=== PATIENT | male | born 1985 | race Caucasian/White ===

== ENCOUNTER 2021-11-10 14:14 | Inpatient (IN) | payer OTHER ==
[2021-11-10] MEDS ORDERED: VENTOLIN COMMON CANISTER IH STA (14:34)
[2021-11-10] MEDS ORDERED: DECADRON 10MG INJ. IV ONE (14:34)
[2021-11-10] MEDS ORDERED: Zithromax 500 MG/ 250 ML NaCl Premix 500 MG/250 ML IVPB IV STA (14:34)
[2021-11-10] MEDS ORDERED: ROCEPHIN 2 Gm-D5w 50ML BAG** 2 G/50 ML IVPB IV STA (14:34)
[2021-11-10] MEDS ORDERED: DECADRON 10MG INJ. ONE (14:40)
[2021-11-10] MEDS ORDERED: ROCEPHIN 2 Gm-D5w 50ML BAG** 2 G/50 ML IVPB IV ONE (14:40)
[2021-11-10 14:45] LABS: Absolute Neutrophil Ct (ANC) 5.93 (1.4-6.9); BASOPHIL % 0.1 % (0.0-0.4); Basophil (Absolute #) 0.01 (0-0.4); Eosinophil % 0.1 % (0.00-5.0); Eosinophil (Absolute #) 0.01 (0-0.5); Hemoglobin 15.6 gm/dl (12.5-18.0); Lymphocyte (Absolute #) 1.06 (1.0-4.6); Lymphocytes % 13.9 % (24.0-44.0); Mean Cell Volume 89.8 fl (78-100); Mean Corpuscular Hemoglobin 30.5 pg (26-32); Mean Corpuscular Hgb Concent. 33.9 g/dl (32-36); Mean Platelet Volume 9.9 fl (7.5-11.0); Monocytes % 7.9 % (0.0-12.0); Platelet Count 208 K/mm3 (150-450); Red Blood Count 5.12 M/mm3 (4.1-5.6); Red Cell Distribution Width 13.3 % (11.5-14.0); White Blood Count 7.6 K/mm3 (4.0-10.5)
--- NOTE | 2021-11-10 14:49 | ERPHSYRPT ---
- History of Present Illness Time Seen by Provider: 11/10/21 14:18 Source: patient Exam Limitations: no limitations Patient Subjective Stated Complaint: Pt is positive for covid and he is SOB and has body fatigue and was told by his work to come here Triage Nursing Assessment: Pt brought to the ER by a family member, tachypnic, rates overall body pain as 5/10, oxygen was 87% upon arrival and was placed on 3L NC, skin n/w/d, some diarrhea Physician History: 36 years old healthy male presented to the ER with chief complaint of increasing shortness of breath for the last 10 days. Patient has been tested positive for COVID-19 outpatient. Reports having generalized weakness fatigue and tiredness no few days ago but having increasing shortness of breath but activity and now having some shortness of breath even resting and gets very worse on ambulation. Reports having minimal nonproductive cough and chest tightness with subjective feeling of fever and chills. Patient oxygen saturation was 88% on room air on p resentation, placed on 3 L and currently around 95%. Unvaccinated against COVID-19. Timing/Duration: day(s) (10), gradual onset, worse Activities at Onset: activity, rest Severity of Dyspnea-Max: moderate Severity of Dyspnea-Current: moderate Possible Cause: illness exposure Modifying Factors: Worsens With: activity, coughing, exertion Associated Symptoms: cough, chest pain/discomfort, weakness, painful breathing, No productive cough Allergies/Adverse Reactions: No Known Drug Allergies Allergy (Verified 11/10/21 14:26) Home Medications: Lisinopril 10 mg [Zestril 10 MG] 10 mg PO DAILY 11/10/21 [History] Travel Risk - International Travel Have you traveled outside of the country in past 3 weeks: No - Coronavirus Screening Symptoms: Cough: New Onset, Shortness of Breath, Vomiting/Diarrhea, Loss of Taste or Smell, Headaches/Body Aches/Fatigue - Vaccine Status Have you recieved a Covid-19 vaccination: No - Review of Systems Constitutional: Fever, Chills, Fatigue, Weakness Eyes: No Symptoms Ears, Nose, & Throat: Nose Congestion Respiratory: Cough, Dyspnea, Dyspnea on Exertion (ODOM), Wheezing Cardiac: Chest Pain Abdominal/Gastrointestinal: No Symptoms Genitourinary Symptoms: No Symptoms Musculoskeletal: Myalgias Skin: No Symptoms Neurological: Headache Psychological: No Symptoms Endocrine: No Symptoms Hematologic/Lymphatic: No Symptoms Immunological/Allergic: No Symptoms - Past Medical History Pertinent Past Medical History: Yes Cardiac History: Hypertension - Past Surgical History Past Surgical History: No - Social History Smoking Status: Never smoker Exposure to second hand smoke: No Drug Use: none Patient Lives Alone: No - Nursing Vital Signs Nursing Vital Signs: Initial Vital Signs Temperature 98.3 F 11/10/21 14:15 Pulse Rate 90 11/10/21 14:15 Respiratory Rate 34 H 11/10/21 14:15 Blood Pressure 113/78 11/10/21 14:15 O2 Sat by Pulse Oximetry 95 11/10/21 14:15 Pain Scale Pain Intensity 5 - Physical Exam General Appearance: mild distress, alert Eye Exam: PERRL/EOMI, eyes nml inspection Ears, Nose, Throat Exam: hearing grossly normal, pharyngeal erythema Neck Exam: normal inspection, supple, full range of motion Respiratory Exam: diminished breath sounds, accessory muscle use, rhonchi, wheezing Cardiovascular/Chest Exam: normal heart sounds, regular rate/rhythm Abdominal/Gastrointestinal Exam: soft, No tenderness Extremity Exam: non-tender, normal range of motion Neurologic Exam: alert, oriented x 3, cooperative, hand salter II-XII nml as tested Skin Exam: normal color SpO2 Interpretation: O2 applied SpO2: 95 O2 Delivery: Nasal Cannula (3L) - Course EKG Interpreted by Me: RATE, Sinus Rhythm, NORMAL AXIS, NORMAL INTERVALS, NORMAL QRS Ordered Tests: Active Orders 24 hr Category Date Time Status Learning Engineer STAT Care 11/10/21 14:33 Active EKG-ER Only STAT Care 11/10/21 14:32 Active IV Insertion STAT Care 11/10/21 14:32 Active Oxygen-ED Only Nasal Cannula 3 lpm Care 11/10/21 14:32 Active CHEST 1 VIEW (PORTABLE) Stat Exams 11/10/21 14:33 Completed CHEST WITH CONTRAST [CT] Stat Exams 11/10/21 15:08 Completed BLOOD CULTURE Stat Lab 11/10/21 15:00 Received CBC W DIFF Stat Lab 11/10/21 14:44 Completed CMP Stat Lab 11/10/21 14:44 Completed D-DIMER QUANTITATIVE Stat Lab 11/10/21 14:44 Completed Lactic Acid Stat Lab 11/10/21 14:44 Completed MAGNESIUM Stat Lab 11/10/21 14:44 Completed NT PRO BNP Stat Lab 11/10/21 14:44 Completed TROPONIN Q3H Lab 11/10/21 14:44 Completed TROPONIN Q3H Lab 11/10/21 17:45 Ordered TROPONIN Q3H Lab 11/10/21 20:45 Ordered TROPONIN Q3H Lab 11/10/21 23:45 Ordered TROPONIN Q3H Lab 11/11/21 02:45 Ordered Respiratory Therapy Assessment ONCE RT 11/10/21 15:16 Active Transfer Order Routine Transfer 11/10/21 Ordered Medication Summary Generic Name Dose Route Start Last Admin Trade Name Freq PRN Reason Stop Dose Admin Sodium Chloride 1,000 mls @ 999 mls/hr 11/10/21 15:36 Sodium Chloride 0.9% 1000 Ml IV 11/10/21 16:36 .Q1H1M STA Remdesivir 200 mg/ Sodium 250 mls @ 125 mls/hr 11/10/21 15:38 Chloride IV 11/10/21 17:37 ONCE ONE Discontinued Medications Generic Name Dose Route Start Last Admin Trade Name Freq PRN Reason Stop Dose Admin Albuterol Sulfate 4 puff 11/10/21 14:34 11/10/21 15:05 Albuterol Common Canister Inhaler IH 11/10/21 14:35 4 puff ONCE STA Administration Dexamethasone Sodium Phosphate 6 mg 11/10/21 14:34 11/10/21 14:45 Dexamethasone Sod Phosphate 10 Mg/Ml IV 11/10/21 14:35 6 mg STAT ONE Administration Dexamethasone Sodium Phosphate Confirm 11/10/21 14:40 Dexamethasone Sod Phosphate 10 Mg/Ml Administered 11/10/21 14:41 Dose 10 mg .ROUTE .STK-MED ONE Azithromycin 500 mg in 250 mls @ 250 mls/hr 11/10/21 14:34 11/10/21 16:06 Zithromax 500 Mg/ 250 Ml Nacl Premix IV 11/10/21 15:33 250 ml/hr STAT STA 250 mls/hr Administration Ceftriaxone Sodium/Dextrose 2 g in 50 mls @ 100 mls/hr 11/10/21 14:34 11/10/21 15:17 Rocephin 2 Gm-D5w 50ml Bag IV 11/10/21 15:03 Infused STAT STA Infusion Ceftriaxone Sodium/Dextrose Confirm 11/10/21 14:40 Rocephin 2 Gm-D5w 50ml Bag Administered 11/10/21 14:41 Dose 2 g in 50 mls @ ud IV .STK-MED ONE Azithromycin Confirm 11/10/21 15:35 Zithromax 500 Mg/ 250 Ml Nacl Premix Administered 11/10/21 15:36 Dose 500 mg in 250 mls @ ud IV .STK-MED ONE Lab/Rad Data: Laboratory Result Diagrams 11/10/21 14:44 11/10/21 14:44 Laboratory Results 11/10/21 11/10/21 11/10/21 Range/Units 14:44 14:44 14:44 WBC (4.0-10.5) K/mm3 RBC (4.1-5.6) M/mm3 Hgb (12.5-18.0) gm/dl Hct (42-50) % MCV (78-100) fl MCH (26-32) pg MCHC (32-36) g/dl RDW (11.5-14.0) % Plt Count (150-450) K/mm3 MPV (7.5-11.0) fl Gran % (36.0-66.0) % Eos # (Auto) (0-0.5) Absolute Lymphs (auto) (1.0-4.6) Absolute Monos (auto) (0.0-1.3) Lymphocytes % (24.0-44.0) % Monocytes % (0.0-12.0) % Eosinophils % (0.00-5.0) % Basophils % (0.0-0.4) % Absolute Granulocytes (1.4-6.9) Basophils # (0-0.4) D-Dimer 1202 H* (215-500) ng/mL Sodium 140 (137-145) mmol/L Potassium 3.8 (3.5-5.1) mmol/L Chloride 107 (98-107) mmol/L Carbon Dioxide 17 L (22-30) mmol/L Anion Gap 19.3 H (5-15) MEQ/L BUN 27 H (9-20) mg/dL Creatinine 1.40 H (0.66-1.25) mg/dL Estimated GFR > 60.0 ML/MIN Glucose 127 H (74-106) mg/dL Lactic Acid (0.4-2.0) Calcium 9.3 (8.4-10.2) mg/dL Magnesium 2.1 (1.6-2.3) mg/dL Total Bilirubin 0.90 (0.2-1.3) mg/dL AST 97 H (17-59) U/L ALT 70 H (0-50) U/L Alkaline Phosphatase 87 (38-126) U/L Troponin I < 0.012 (0.000-0.034) ng/mL NT-Pro-B Natriuret Pep 25.9 (0-450) pg/mL Serum Total Protein 7.3 (6.3-8.2) g/dL Albumin 4.4 (3.5-5.0) g/dL 11/10/21 11/10/21 Range/Units 14:44 14:44 WBC 7.6 (4.0-10.5) K/mm3 RBC 5.12 (4.1-5.6) M/mm3 Hgb 15.6 (12.5-18.0) gm/dl Hct 46.0 (42-50) % MCV 89.8 (78-100) fl MCH 30.5 (26-32) pg MCHC 33.9 (32-36) g/dl RDW 13.3 (11.5-14.0) % Plt Count 208 (150-450) K/mm3 MPV 9.9 (7.5-11.0) fl Gran % 78.0 H (36.0-66.0) % Eos # (Auto) 0.01 (0-0.5) Absolute Lymphs (auto) 1.06 (1.0-4.6) Absolute Monos (auto) 0.60 (0.0-1.3) Lymphocytes % 13.9 L (24.0-44.0) % Monocytes % 7.9 (0.0-12.0) % Eosinophils % 0.1 (0.00-5.0) % Basophils % 0.1 (0.0-0.4) % Absolute Granulocytes 5.93 (1.4-6.9) Basophils # 0.01 (0-0.4) D-Dimer (215-500) ng/mL Sodium (137-145) mmol/L Potassium (3.5-5.1) mmol/L Chloride (98-107) mmol/L Carbon Dioxide (22-30) mmol/L Anion Gap (5-15) MEQ/L BUN (9-20) mg/dL Creatinine (0.66-1.25) mg/dL Estimated GFR ML/MIN Glucose (74-106) mg/dL Lactic Acid 1.4 (0.4-2.0) Calcium (8.4-10.2) mg/dL Magnesium (1.6-2.3) mg/dL Total Bilirubin (0.2-1.3) mg/dL AST (17-59) U/L ALT (0-50) U/L Alkaline Phosphatase (38-126) U/L Troponin I (0.000-0.034) ng/mL NT-Pro-B Natriuret Pep (0-450) pg/mL Serum Total Protein (6.3-8.2) g/dL Albumin (3.5-5.0) g/dL - Progress Progress: improved, re-examined Air Movement: fair Progress Note: 11/10/21 15:39 36 years old positive COVID-19 with worsening shortness of breath, hypoxic on room air on presentation currently on 3 L with sats around 95%. Chest x-ray bilateral airspace disease, given Decadron, albuterol puffs along with a dose of antibiotics and remdesivir. Also has HUMPHREY of the creatinine of 1.4 with baseline 0.7 which I believe is secondary to decreased oral intake, given fluids. Elevated D-dimer, will obtain CTA. Discussed with Dr. Figueroa and patient is accepted for admission. Blood Culture(s) Obtained: Yes Antibiotics given: Yes Discussed with Dr.: Other Will see patient in: hospital (full admit) Counseled pt/family regarding: lab results (Dr. Figueroa), diagnosis, rad results - Departure Departure Disposition: In-patient Admission Clinical Impression: Pneumonia due to COVID-19 virus, HUMPHREY (acute kidney injury) Respiratory failure Qualifiers: Chronicity: acute Respiratory failure complication: hypoxia Qualified Code(s): J96.01 - Acute respiratory failure with hypoxia Condition: Stable Critical Care Time: No
--- NOTE | 2021-11-10 14:57 | XRAY ---
Indication: Short of breath. Positive Covid 19. Comparison: March 07, 2018. Portable chest less inflated with new diffuse bilateral patchy groundglass airspace disease without consolidation/large effusion. Remaining heart and bony thorax unremarkable.
[2021-11-10 15:22] LABS: ALBUMIN 4.4 g/dL (3.5-5.0); ALKALINE PHOSPHATASE 87 U/L (38-126); ANION GAP 19.3 MEQ/L (5-15); BLOOD UREA NITROGEN 27 mg/dL (9-20); CHLORIDE 107 mmol/L (98-107); Calcium 9.3 mg/dL (8.4-10.2); Carbon Dioxide 17 mmol/L (22-30); EST GLOMERULAR FILTRATION RATE > 60.0 ML/MIN; Glucose 127 mg/dL (74-106); MAGNESIUM 2.1 mg/dL (1.6-2.3); NT PRO BNP 25.9 pg/mL (0-450); Potassium 3.8 mmol/L (3.5-5.1); SGOT/AST 97 U/L (17-59); SGPT/ALT 70 U/L (0-50); SODIUM 140 mmol/L (137-145); Total Protein 7.3 g/dL (6.3-8.2)
[2021-11-10] MEDS ORDERED: Zithromax 500 MG/ 250 ML NaCl Premix 500 MG/250 ML IVPB IV ONE (15:35)
[2021-11-10] MEDS ORDERED: Sodium Chloride 0.9% 1000 ML 1,000 ML IV STA (15:36)
[2021-11-10] MEDS ORDERED: REMDESIVIR 200 MG in Sodium Chloride 0.9% 250 ML 250 ML IV ONE (15:38)
--- NOTE | 2021-11-10 16:24 | XRAY ---
Indication: Positive Covid 19. Elevated d-dimer. Multiple contiguous images obtained through the chest using 100 cc Isovue 370 contrast and PE protocol. Comparison: None There is good opacification of the pulmonary arteries to include the lobar and segmental branches. No pulmonary embolus. Heart not enlarged. Aorta is normal in course and caliber. No pathologic mediastinal/hilar lymphadenopathy. Lungs demonstrates moderate diffuse bilateral patchy consolidating/nonconsolidating airspace disease. No effusion. Incidental tiny right middle lobe calcified granuloma. Bony thorax intact. The limited upper abdomen demonstrates mild diffuse fatty liver and 13.5 cm splenomegaly. Impression: 1. Negative pulmonary embolus. 2. Diffuse bilateral patchy consolidating/nonconsolidating airspace disease favoring Covid 19 pneumonia. 3. Incidental fatty liver and splenomegaly.
[2021-11-10] MEDS ORDERED: Sodium Chloride 0.9% 1000 ML 1,000 ML ONE (17:38)
[2021-11-10] MEDS ORDERED: Zofran 4 MG/2 ML VIAL IV PRN (21:18)
[2021-11-10] MEDS ORDERED: MORPHINE SULFATE 2 MG INJ IV PRN (21:18)
[2021-11-10] MEDS ORDERED: TYLENOL 325 MG PO PRN (21:18)
[2021-11-10] MEDS: OLUMIANT PO SCH (22:42)
[2021-11-10] MEDS: Sodium Chloride 0.9% 1000 ML 1,000 ML IV SCH (22:50)
[2021-11-10] MEDS: Ativan 1 MG PO PRN (23:00)
[2021-11-10] MEDS: HYDROCODONE-CHLORPHEN ER SUSP PO PRN (23:00)
[2021-11-11 05:45] LABS: Hematocrit 40.6 % (42-50); Hemoglobin 13.3 gm/dl (12.5-18.0); Mean Cell Volume 92.7 fl (78-100); Mean Corpuscular Hemoglobin 30.4 pg (26-32); Mean Corpuscular Hgb Concent. 32.8 g/dl (32-36); Mean Platelet Volume 9.8 fl (7.5-11.0); Platelet Count 202 K/mm3 (150-450); Red Blood Count 4.38 M/mm3 (4.1-5.6); Red Cell Distribution Width 13.3 % (11.5-14.0); White Blood Count 3.8 K/mm3 (4.0-10.5)
[2021-11-11 05:59] LABS: ALBUMIN 3.8 g/dL (3.5-5.0); ALKALINE PHOSPHATASE 62 U/L (38-126); ANION GAP 15.4 MEQ/L (5-15); BLOOD UREA NITROGEN 21 mg/dL (9-20); CHLORIDE 110 mmol/L (98-107); Calcium 8.4 mg/dL (8.4-10.2); Carbon Dioxide 19 mmol/L (22-30); EST GLOMERULAR FILTRATION RATE > 60.0 ML/MIN; Glucose 140 mg/dL (74-106); Potassium 4.5 mmol/L (3.5-5.1); SGOT/AST 70 U/L (17-59); SGPT/ALT 60 U/L (0-50); SODIUM 140 mmol/L (137-145); Total Protein 6.7 g/dL (6.3-8.2)
[2021-11-11 07:48] LABS: BAND 3 % (0.0-2.0); Lymphocytes 29 % (24-44); Monocyte 5 % (0.0-12.0); Neutrophils 63 % (36.-66.); Platelet Estimate NORMAL (NORMAL); Total Cells Counted 100; Toxic Granulation 1+
[2021-11-11] MEDS ORDERED: TYLENOL EXTRA STRENGTH 500 MG PO PRN (08:41)
[2021-11-11] MEDS: Sodium Chloride 0.9% 1000 ML 1,000 ML IV SCH (09:12)
[2021-11-11] MEDS ORDERED: ZYLOPRIM 300 MG PO SCH (10:00)
[2021-11-11] MEDS ORDERED: ROCEPHIN 1 Gm-D5w 50 ml Bag** 1 G/50 ML IVPB IV SCH (10:00)
[2021-11-11] MEDS ORDERED: Zithromax 500 MG/ 250 ML NaCl Premix 500 MG/250 ML IVPB IV SCH (10:00)
[2021-11-11] MEDS: ZYLOPRIM 300 MG PO SCH ×2 (11:07→21:20)
[2021-11-11] MEDS: Zestril 20 MG PO SCH (11:07)
[2021-11-11] MEDS: DECADRON 10MG INJ. IV SCH (11:07)
[2021-11-11] MEDS: ENOXAPARIN SODIUM SQ SCH (11:07)
[2021-11-11] MEDS: PROTONIX 40 MG IV IV SCH (11:08)
[2021-11-11] MEDS: OLUMIANT PO SCH (11:08)
[2021-11-11] MEDS: ZOCOR 20MG PO SCH (11:31)
[2021-11-11] MEDS: REMDESIVIR 100 MG in Sodium Chloride 0.9% 100 ML BAG 100 ML IV SCH (21:20)
[2021-11-11] MEDS: Ativan 1 MG PO PRN (22:43)
[2021-11-12] MEDS ORDERED: Ativan 2 MG/1 ML VIAL IV ONE (02:03)
[2021-11-12] MEDS: Sodium Chloride 0.9% 1000 ML 1,000 ML IV SCH (06:27)
[2021-11-12] MEDS: HYDROCODONE-CHLORPHEN ER SUSP PO PRN ×2 (07:44→20:56)
[2021-11-12] MEDS: PROTONIX 40 MG IV IV SCH (09:12)
[2021-11-12] MEDS: OLUMIANT PO SCH (09:12)
[2021-11-12] MEDS: ENOXAPARIN SODIUM SQ SCH (09:12)
[2021-11-12] MEDS: Zestril 20 MG PO SCH (09:12)
[2021-11-12] MEDS: DECADRON 10MG INJ. IV SCH (09:12)
[2021-11-12] MEDS: ZOCOR 20MG PO SCH (09:13)
[2021-11-12] MEDS: ZYLOPRIM 300 MG PO SCH ×2 (09:17→20:56)
[2021-11-12] MEDS: Ativan 1 MG PO PRN (20:56)
[2021-11-12] MEDS: REMDESIVIR 100 MG in Sodium Chloride 0.9% 100 ML BAG 100 ML IV SCH (20:56)
[2021-11-13 08:50] VITALS: BP 129/84
[2021-11-13] MEDS: ZOCOR 20MG PO SCH (09:24)
[2021-11-13] MEDS: OLUMIANT PO SCH (09:24)
[2021-11-13] MEDS: Zestril 20 MG PO SCH (09:24)
[2021-11-13 09:29] VITALS: O2SAT 91
[2021-11-13] MEDS: ZYLOPRIM 300 MG PO SCH (09:31)
[2021-11-13 09:48] VITALS: PULSE 82
[2021-11-13] MEDS: ENOXAPARIN SODIUM SQ SCH (09:58)
[2021-11-13] MEDS: DECADRON 10MG INJ. IV SCH (09:58)
[2021-11-13] MEDS: PROTONIX 40 MG IV IV SCH (09:58)
== END 2021-11-13 13:05 | disposition home or self-care (01) | DRG 177 ==
LOC: ED 14:14 → MED SURG 20:56
PROVIDERS: ADMIT Family Medicine; ATTEND Family Medicine
DX: U07.1 COVID-19 (principal); J96.01 Acute respiratory failure with hypoxia; N17.9 Acute kidney failure, unspecified; I10 Essential (primary) hypertension; R79.89 Other specified abnormal findings of blood chemistry; Z79.899 Other long term (current) drug therapy
CPT/HCPCS: 36000; 36415; 71045; 71260; 80053; 82947; 83605; 83735; 83880; 84484; 85025; 85379; 87040; 93005; 93041; 94762; 96360; 96365; 96367; 96374; 99285; J0456; J0696; J1100; J1650; A9270-GY